=== PATIENT | male | born 1935 | race Caucasian/White ===

== ENCOUNTER 2018-10-17 20:05 | Emergency (ER) | payer MEDICARE ==
[~2018-10-17] VITALS: Ht 175.3 cm; Wt 75.0 kg
[2018-10-17 20:07] VITALS: Ht 175.3 cm; Wt 75.0 kg
[2018-10-17] MEDS ORDERED: ZOLOFT25 MG PO (20:12)
[2018-10-17] MEDS ORDERED: LIPITOR20 MG PO (20:12)
[2018-10-17] MEDS ORDERED: ELIQUIS2.5 MG PO (20:12)
[2018-10-17] MEDS ORDERED: PLAVIX75 MG PO (20:12)
[2018-10-17] MEDS ORDERED: NORVASC5 MG PO (20:12)
[2018-10-17 20:38] LABS: APTT 28.6 SECONDS (22.8-39.4); INR 1.27 (0.85-1.17); PROTIME 15.4 SECONDS (11.6-15.0)
[2018-10-17 20:39] LABS: BASOPHILS 0.4 % (0-2); EOSINOPHILS 4.3 % (0-7); HEMATOCRIT 39.3 % (42.0-54.0); HEMOGLOBIN 12.9 g/dL (13.5-17.5); IMMATURE GRANULOCYTES 0.3 % (0-5); MCHC 32.8 g/dL (31.0-37.0); MCV 85.4 fL (80.0-100.0); MEAN PLATELET VOLUME 9.8 fL (7.4-10.4); MONOCYTES 10.9 % (2-11); NEUTROPHILS 67.1 % (40-80); PLATELET COUNT 197 10x3/uL (130-400); RDW 14.9 % (11.5-14.5); WBC 7.8 10x3/uL (4.8-10.8)
[2018-10-17 20:46] LABS: ALKALINE PHOSPHATASE 110 U/L (46-116); ALT (SGPT) 15 U/L (10-68); BILIRUBIN - TOTAL 0.21 mg/dL (0.2-1.3); CALC OSMOLALITY 289 mosm/kg (275-300); CALCIUM 8.6 mg/dL (8.5-10.1); CARBON DIOXIDE 26.7 mmol/L (21.0-32.0); CHLORIDE - SERUM 109 mmol/L (98-107); GLUCOSE 108 mg/dL (74-106); POTASSIUM - SERUM 4.2 mmol/L (3.5-5.1); PROTEIN - SERUM 6.3 g/dL (6.4-8.2); SODIUM 144 mmol/L (136-145); UREA NITROGEN 19 mg/dL (7-18); eGFR NON AFRICAN AMERICAN 76 mL/min (90-120)
[2018-10-17 20:56] LABS: CKMB 1.4 U/L (0.0-3.6); CREATINE KINASE 23 UL (21-232); MAGNESIUM - SERUM 2.2 mg/dL (1.8-2.4); TROPONIN-I < 0.017 ng/mL (0.000-0.060)
[2018-10-17] MEDS ORDERED: ATARAX 25 MG TA25 MG PO (21:33)
[2018-10-18 01:11] VITALS: BP 154/74
== END 2018-10-18 01:12 ==
LOC: D.ER 20:05
PROVIDERS: Emergency Medicine
DX: R07.9 Chest pain, unspecified (principal)